=== PATIENT | male | born 1995 | race American Indian/Alaskan Native ===

== ENCOUNTER 2017-03-02 15:41 | Emergency (ER) | payer OTHER ==
[2017-03-02 16:02] VITALS: BP 148/83; PULSE 73; RESP 18; TEMP 97.8; O2SAT 98
--- NOTE | 2017-03-02 17:03 | ED PDOC ---
HPI: General Adult Time Seen by Provider: 03/02/17 17:00 Chief Complaint (Nursing): Abdominal Pain History Per: Patient Onset/Duration Of Symptoms: Days (1) Current Symptoms Are (Timing): Still Present Severity: Mild Pain Scale Rating Of: 0 Additional Complaint(s): [place] protrusion anal area yesterday after having BM. no pain or bleeding. no abd pain Past Medical History Vital Signs: Last Vital Signs Temp 97.8 F 03/02/17 15:59 Pulse 73 03/02/17 15:59 Resp 18 03/02/17 15:59 BP 148/83 03/02/17 15:59 Pulse Ox 98 03/02/17 15:59 - Medical History PMH: No Chronic Diseases - Family History Family History: States: Unknown Family Hx - Immunization History Hx Tetanus Toxoid Vaccination: No Hx Influenza Vaccination: No Hx Pneumococcal Vaccination: No - Home Medications Home Medications: Ambulatory Orders Medication Instructions Recorded Ciprofloxacin [Cipro] 500 mg PO BID #14 tab 07/06/16 Hydrocortisone 2.5% (Rectal) 1 applic [place] BID #1 tube 03/02/17 [Anusol-HC] - Allergies Allergies/Adverse Reactions: Allergies Allergy/AdvReac Type Severity Reaction Status Date / Time No Known Allergies Allergy Verified 07/06/16 13:43 Review of Systems Constitutional: Negative for: Fever Gastrointestinal: Negative for: Abdominal Pain, Melena, Hematochezia Physical Exam - Physical Exam Appears: Positive for: Non-toxic, No Acute Distress Skin: Positive for: Normal Color, Warm, DRY Rectal: Positive for: Hemorrhoids (Small ext hemorrhoid left side, non thrombosed. No blood) - ECG O2 Sat by Pulse Oximetry: 98 Disposition - Clinical Impression Clinical Impression: Hemorrhoid - Patient ED Disposition Is Patient to be Admitted: No Counseled Patient/Family Regarding: Diagnosis, Need For Followup, Rx Given - Disposition Referrals: Formerly [facility] [place] [Outside] Disposition: Routine/Home Disposition Time: 17:03 Condition: FAIR Prescriptions: Hydrocortisone 2.5% (Rectal) [Anusol-HC] 1 applic TN BID #1 tube Instructions: Hemorrhoids (ED) Forms: [employer] (Bulgarian)
== END 2017-03-02 17:30 | disposition home or self-care (01) ==
LOC: H.ER 15:41
DX: K64.9 Unspecified hemorrhoids (principal)

== ENCOUNTER 2018-02-02 13:08 | Emergency (ER) | payer MEDICAID ==
[2018-02-02 13:27] VITALS: BP 128/79; PULSE 60; RESP 18; TEMP 98.6; O2SAT 100
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
== END 2018-02-02 15:52 | disposition home or self-care (01) ==
LOC: H.ER 13:08 → SUPCPDRO 13:08 → H.ER 15:52
DX: H66.92 Otitis media, unspecified, left ear (principal)

== ENCOUNTER 2018-03-01 10:24 | Emergency (ER) | payer MEDICAID ==
[2018-03-01 10:33] VITALS: BP 138/77; PULSE 74; RESP 18; TEMP 98.5; O2SAT 99
--- NOTE | 2018-03-01 10:56 | ED PDOC ---
HPI: CCC, URI, Sore Throat Time Seen by Provider: 03/01/18 10:53 Chief Complaint (Nursing): ENT Problem History Per: Patient Onset/Duration Of Symptoms: Other (3 weeks) Current Symptoms Are (Timing): Still Present Location Of Pain: Ear(s) Associated Symptoms: denies: Fever, Nasal Congestion Ear Symptoms: Left: Ear Pain Severity: Mild Additional Complaint(s): Left ear pain x 3 weeks. Tx'ed woth antibiotics, improved but then recurred. Denies fever. No cough or discharge from ear. Past Medical History Vital Signs: Last Vital Signs Temp 98.5 F 03/01/18 10:32 Pulse 74 03/01/18 10:32 Resp 18 03/01/18 10:32 BP 138/77 03/01/18 10:32 Pulse Ox 99 03/01/18 10:32 - Medical History PMH: No Chronic Diseases - Family History Family History: States: Unknown Family Hx - Immunization History Hx Tetanus Toxoid Vaccination: No Hx Influenza Vaccination: No Hx Pneumococcal Vaccination: No - Home Medications Home Medications: Ambulatory Orders Medication Instructions Recorded Ciprofloxacin [Cipro] 500 mg PO BID #14 tab 07/06/16 Hydrocortisone 2.5% (Rectal) [address] BID #1 tube 03/02/17 [Anusol-HC] Amoxicillin 875 mg PO BID #14 tab 02/02/18 Naproxen 500 mg PO BID PRN #20 tab 02/02/18 Neomycin/Polymyxin/Hydrocortis 3 drop OT TID #1 bottle 03/01/18 [Cortisporin Otic Susp] - Allergies Allergies/Adverse Reactions: Allergies Allergy/AdvReac Type Severity Reaction Status Date / Time No Known Allergies Allergy Verified 07/06/16 13:43 Review of Systems Constitutional: Negative for: Fever ENT: Positive for: Ear Pain. Negative for: Throat Pain Respiratory: Negative for: Cough Physical Exam - Physical Exam Appears: Positive for: Non-toxic, No Acute Distress Skin: Positive for: Normal Color, Warm, DRY ENT: Positive for: Other (Left canal erythemetous. TM intact and nl) Neck: Positive for: Normal, Painless ROM - ECG O2 Sat by Pulse Oximetry: 99 Disposition - Clinical Impression Clinical Impression: Otitis externa - Patient ED Disposition Is Patient to be Admitted: No - Disposition Referrals: Emery Denny MD [Staff Provider] - Disposition: Routine/Home Disposition Time: 10:56 Condition: FAIR Prescriptions: Neomycin/Polymyxin/Hydrocortis [Cortisporin Otic Susp] 3 drop OT TID #1 bottle Instructions: Outer Ear Infection Forms: [employer] (Iranian), [facility] ED School/Work Excuse
== END 2018-03-01 11:15 | disposition home or self-care (01) ==
LOC: H.ER 10:24
DX: H60.92 Unspecified otitis externa, left ear (principal)

== ENCOUNTER 2018-04-08 14:01 | Inpatient (IN) | payer MEDICAID ==
[2018-04-08] MEDS ORDERED: Sodium Chloride 0.9% 1,000 ML IV STA (15:14)
[2018-04-08] MEDS ORDERED: Morphine 4 MG/ML VIAL IV STA (15:16)
--- NOTE | 2018-04-08 15:17 | ED PDOC ---
HPI: Abdomen Time Seen by Provider: 04/08/18 15:06 Chief Complaint (Nursing): Abdominal Pain Chief Complaint (Provider): Abdominal pain History Per: Patient History/Exam Limitations: no limitations Additional Complaint(s): Pt reports RLQ abdominal pain X 2 days, constant, no radiation. Denies fever, nausea, vomiting, constipation, diarrhea, urinary symptoms. Past Medical History Reviewed: Nursing Documentation, Vital Signs Vital Signs: Last Vital Signs Temp 98.2 F 04/08/18 14:16 Pulse 78 04/08/18 14:16 Resp 18 04/08/18 14:16 BP 120/66 04/08/18 14:16 Pulse Ox 99 04/08/18 14:16 - Medical History PMH: No Chronic Diseases - Surgical History Surgical History: No Surg Hx - Family History Family History: States: Unknown Family Hx - Social History Current smoker - smoking cessation education provided: Yes Alcohol: None - Immunization History Hx Tetanus Toxoid Vaccination: No Hx Influenza Vaccination: No Hx Pneumococcal Vaccination: No - Home Medications Home Medications: Ambulatory Orders Medication Instructions Recorded Ciprofloxacin [Cipro] 500 mg PO BID #14 tab 07/06/16 Hydrocortisone 2.5% (Rectal) 1 applic [place] BID #1 tube 03/02/17 [Anusol-HC] Amoxicillin 875 mg PO BID #14 tab 02/02/18 Naproxen 500 mg PO BID PRN #20 tab 02/02/18 Neomycin/Polymyxin/Hydrocortis 3 drop OT TID #1 bottle 03/01/18 [Cortisporin Otic Susp] - Allergies Allergies/Adverse Reactions: Allergies Allergy/AdvReac Type Severity Reaction Status Date / Time No Known Allergies Allergy Verified 07/06/16 13:43 Review of Systems Constitutional: Negative for: Fever, Chills Cardiovascular: Negative for: Chest Pain Respiratory: Negative for: Shortness of Breath Gastrointestinal: Positive for: Abdominal Pain. Negative for: Nausea, Vomiting, Diarrhea Genitourinary Male: Negative for: Dysuria, Hematuria Musculoskeletal: Negative for: Back Pain Skin: Negative for: Rash, Lesions Neurological: Negative for: Headache Physical Exam - Reviewed Nursing Documentation Reviewed: Yes Vital Signs Reviewed: Yes - Physical Exam Appears: Positive for: No Acute Distress Skin: Positive for: Normal Color, Warm, Dry Eye Exam: Positive for: Normal appearance, EOMI, PERRL Cardiovascular/Chest: Positive for: Regular Rate, Rhythm Respiratory: Positive for: Normal Breath Sounds Gastrointestinal/Abdominal: Positive for: Bowel Sounds, Soft, Tenderness (RLQ), Guarding. Negative for: Mass, Distended, Rebound Back: Positive for: Normal Inspection. Negative for: L CVA Tenderness, R CVA Tenderness Extremity: Positive for: Normal ROM Neurologic/Psych: Positive for: Oriented - Laboratory Results Result Diagrams: 04/08/18 15:40 04/08/18 15:40 - ECG O2 Sat by Pulse Oximetry: 99 Medical Decision Making Medical Decision Makin yo male with RLQ pain. - labs - CT abd/pelvis - IVF - Morphine Accession No. : [id number] Patient Name / ID : FAITH ARMSTRONG / [id number] Exam Date : 04/08/2018 16:59:41 ( Approved ) Study Comment : Sex / Age : M / 22Y Creator : Teresa Calvillo MD Dictator : Teresa Calvillo MD Director Mobile Media Solutions : Banking Analyst : Teresa Calvillo MD Approver2 : Report Date : 04/08/2018 17:29:35 My Comment : Date of service: 04/08/2018 CT abdomen and pelvis with IV contrast Indication: RLQ pain Technique: Contiguous axial images of the abdomen and pelvis. Coronal and Sagittal reformats generated and reviewed. Contrast: 95 mL Omnipaque [address] exam was performed using 1 or more of the following dose reduction techniques: Automated exposure control, adjustment of the MAA and/or kV according to patient size, and/or use of iterative reconstruction technique. Radiation dose: Total exam DLP = 730.65 MGy-cm. Comparison: None available Findings: No visible consolidation, pleural effusion, or pneumothorax. The liver, spleen, kidneys, pancreas, adrenal glands, and gallbladder appear unremarkable. The stomach is nondistended. The bowel loops appear within normal limits of caliber without evidence of intestinal obstruction. There is no definite free air. The appendix appears dilated measuring approximately 9 mm in diameter (axial image 118, coronal image 39) with mild adjacent inflammatory stranding. Correlate clinically for possibility of acute appendicitis. The urinary bladder appears unremarkable. Visualized osseous structures appear unremarkable. Impression: The appendix appears dilated measuring approximately 9 mm in diameter with mild adjacent inflammatory stranding. Correlate clinically for possibility of acute appendicitis. Correlate clinically including physical exam and white blood cell count. 17:55 18:00 Case discussed with vice president regulatory. Disposition - Clinical Impression Clinical Impression: Acute appendicitis - Patient ED Disposition Is Patient to be Admitted: Yes - Disposition Disposition Time: 17:50 Condition: STABLE Forms: [employer] (Polish) - Pt Status Changed To: Hospital Disposition Of: Inpatient - Admit Certification Admit to Inpatient:: After my assessment, the patient will require hospitalization for at least two midnights. This is because of the severity of symptoms shown, intensity of services needed, and/or the medical risk in this patient being treated as an outpatient. - POA Present On Arrival: None
[2018-04-08] MEDS ORDERED: Morphine 4 MG/ML VIAL ONE ×2 (15:44→15:47)
[2018-04-08 15:54] LABS: BASO % 0.3 % (0.0-2.0); EOS # 0.1 K/uL (0.0-0.7); EOS % 0.5 % (0.0-4.0); LYMPH # 1.3 K/uL (1.0-4.3); MEAN CELL VOLUME 89.7 fl (80.0-94.0); MEAN CORPUSCULAR HEMOGLOBIN 30.3 pg (27.0-31.0); MEAN CORPUSCULAR HGB CONC 33.8 g/dL (33.0-37.0); MEAN PLATELET VOLUME 8.6 fl (7.2-11.7); MONO # 0.8 K/uL (0.0-0.8); MONO % 6.4 % (0.0-10.0); NEUT % 82.8 % (50.0-75.0); RBC 4.97 Mil/uL (4.40-5.90); RED CELL DISTRIBUTION WIDTH 13.3 % (11.5-14.5); WHITE BLOOD COUNT 13.2 K/uL (4.8-10.8)
[2018-04-08 15:59] LABS: PROTHROMBIN TIME 10.8 Seconds (9.8-13.1)
[2018-04-08 16:02] LABS: PARTIAL THROMBOPLASTIN TIME 33.4 Seconds (25.6-37.1)
[2018-04-08 16:32] LABS: ALB/GLOB RATIO 1.5 (1.0-2.1); ALBUMIN 4.7 g/dL (3.5-5.0); ALT/SGPT 25 U/L (21-72); AST/SGOT 28 U/L (17-59); BLOOD UREA NITROGEN 14 mg/dl (9-20); CALCIUM 9.9 mg/dL (8.4-10.2); GFR NON-AFRICAN AMERICAN > 60
[2018-04-08] MEDS ORDERED: Iohexol 300 100 ML IJ ONE (16:51)
[2018-04-08] MEDS ORDERED: Sodium Chloride 0.9% 50 ML IV ONE (16:51)
--- NOTE | 2018-04-08 17:46 | CT ---
Date of service: 04/08/2018 CT abdomen and pelvis with IV contrast Indication: RLQ pain Technique: Contiguous axial images of the abdomen and pelvis. Coronal and Sagittal reformats generated and reviewed. Contrast: 95 mL Omnipaque [address] exam was performed using 1 or more of the following dose reduction techniques: Automated exposure control, adjustment of the MAA and/or kV according to patient size, and/or use of iterative reconstruction technique. Radiation dose: Total exam DLP = 730.65 MGy-cm. Comparison: None available Findings: No visible consolidation, pleural effusion, or pneumothorax. The liver, spleen, kidneys, pancreas, adrenal glands, and gallbladder appear unremarkable. The stomach is nondistended. The bowel loops appear within normal limits of caliber without evidence of intestinal obstruction. There is no definite free air. The appendix appears dilated measuring approximately 9 mm in diameter (axial image 118, coronal image 39) with mild adjacent inflammatory stranding. Correlate clinically for possibility of acute appendicitis. The urinary bladder appears unremarkable. Visualized osseous structures appear unremarkable. Impression: The appendix appears dilated measuring approximately 9 mm in diameter with mild adjacent inflammatory stranding. Correlate clinically for possibility of acute appendicitis. Correlate clinically including physical exam and white blood cell count. Findings discussed with Dr. Joyce on 04/08/18 at 5:43 p.m.
[2018-04-08] MEDS ORDERED: Piperacillin/Tazobact 4.5 GM in Sodium Chloride 0.9% 100 ML IVPB STA (17:49)
--- NOTE | 2018-04-08 18:58 | CP.PCM.CON ---
<Garland Patrick D - Last Filed: 04/08/18 18:54> History of Present Illness - History of Present Illness History of Present Illness: SURGERY NOTE FOR DR. RICE Reason: Appendicitis 22M presents with abdominal pain that started yesterday night. Patient states pain is in the right lower quadrant and that was where he originally felt the pain. He denies any nausea or vomiting, denies any fevers or chills. States he has not eating all day. He has never had this pain before. PMH: Denies PSH: Denies Social: admits to tobacco, denies alcohol use, and admits to marijuana use Allergies: NKDA Past Patient History - Infectious Disease Hx of Infectious Diseases: None - Past Social History Alcohol: None - PSYCHIATRIC Hx Substance Use: Yes - SURGICAL HISTORY Hx Surgeries: No - ANESTHESIA Hx Anesthesia: No Meds Allergies/Adverse Reactions: Allergies Allergy/AdvReac Type Severity Reaction Status Date / Time cherries Allergy Severe ITCHING Uncoded 04/09/18 08:20 Physical Exam - Constitutional Appears: Non-toxic, No Acute Distress - Eye Exam Eye Exam: EOMI, PERRL - ENT Exam ENT Exam: Mucous Membranes Moist - Respiratory Exam Respiratory Exam: Clear to Auscultation Bilateral, NORMAL BREATHING PATTERN - Cardiovascular Exam Cardiovascular Exam: REGULAR RHYTHM, +S1, +S2 - GI/Abdominal Exam GI & Abdominal Exam: Soft, Tenderness (moderate tenderness in RLQ). absent: Distended, Firm, Guarding, Rebound, Rigid - Extremities Exam Extremities exam: Negative for: pedal edema, tenderness - Neurological Exam Neurological exam: Alert, Oriented x3 - Skin Skin Exam: Dry, Intact, Normal Color, Warm Results - Vital Signs Recent Vital Signs: Last Vital Signs Temp 98.2 F 04/08/18 14:16 Pulse 78 04/08/18 14:16 Resp 18 04/08/18 14:16 BP 120/66 04/08/18 14:16 Pulse Ox 99 04/08/18 18:05 - Labs Result Diagrams: 04/08/18 15:40 04/08/18 15:40 Labs: Laboratory Results - last 24 hr 04/08/18 04/08/18 04/08/18 15:40 15:40 15:40 WBC 13.2 H D RBC 4.97 Hgb 15.0 Hct 44.6 MCV 89.7 MCH 30.3 MCHC 33.8 RDW 13.3 Plt Count 194 MPV 8.6 Neut % (Auto) 82.8 H Lymph % (Auto) 10.0 L [place] % (Auto) 6.4 Eos % (Auto) 0.5 Baso % (Auto) 0.3 Neut # (Auto) 11.0 H Lymph # (Auto) 1.3 [place] # (Auto) 0.8 Eos # (Auto) 0.1 Baso # (Auto) 0.0 PT 10.8 INR 1.0 APTT 33.4 Sodium 133 Potassium 3.5 L Chloride 101 Carbon Dioxide 26 Anion Gap 10 BUN 14 Creatinine 1.1 Est GFR ( Amer) > 60 Est GFR (Non-Af Amer) > 60 Random Glucose 99 Calcium 9.9 Total Bilirubin 0.5 AST 28 ALT 25 Alkaline Phosphatase 61 Total Protein 7.8 Albumin 4.7 Globulin 3.1 Albumin/Globulin Ratio 1.5 Assessment & Plan - Assessment and Plan (Free Text) Assessment: 22M with appendicitis Plan: - NPO after midnight - IVF - Pain control - Antibiotics - AM labs - Booked for OR tomorrow Discussed with Dr. Dwayne Patrick, PGY3 <Flynn Rice B - Last Filed: 04/15/18 08:13> Results - Vital Signs Recent Vital Signs: Last Vital Signs Temp 98.6 F 04/10/18 16:22 Pulse 70 04/10/18 16:22 Resp 16 04/10/18 16:22 BP 122/78 04/10/18 16:22 Pulse Ox 99 04/10/18 16:22 - Labs Result Diagrams: 04/10/18 07:20 04/10/18 07:20 Attending/Attestation - Attestation I have personally seen and examined this patient.: Yes I have fully participated in the care of the patient.: Yes I have reviewed all pertinent clinical information: Yes Notes (Text): Pt was seen and examined at bedside Agree with above note and assessment Pt with RLQ pain and nausea Abdomen : Soft, ND, tender in RLQ Labs and Radiology reviewed Ass: Acute Appendicitis with Leucocytosis Plan: OR for Lap Appendectomy possible Open Consent NPO, IVF IV antibiotics Plan d.w pt in detail Risk and benefit explained in detail.
[2018-04-08 19:20] LABS: URINE BILIRUBIN NEGATIVE (NEGATIVE); URINE BLOOD NEGATIVE (NEGATIVE); URINE CLARITY CLEAR (Clear); URINE COLOR YELLOW (YELLOW); URINE GLUCOSE (UA) NEG (NEGATIVE); URINE LEUKOCYTE ESTERASE NEG Leu/uL (Negative); URINE PROTEIN NEGATIVE (NEGATIVE); URINE UROBILINOGEN 0.2-1.0 mg/dL (0.2-1.0)
[2018-04-08] MEDS: Sodium Chloride 0.9% 1,000 ML IV SCH (19:51)
[2018-04-08] MEDS ORDERED: Piperacillin/Tazobact 3.375 GM in Sodium Chloride 0.9% 100 ML IVPB SCH (22:00)
[2018-04-09] MEDS: Piperacillin/Tazobact 3.375 GM in Sodium Chloride 0.9% 100 ML IVPB SCH ×3 (00:13→11:30)
[2018-04-09] MEDS: Sodium Chloride 0.9% 1,000 ML IV SCH (01:28)
[2018-04-09] MEDS ORDERED: Pneumococcal 23-Valent Vaccine IM ONE (06:22)
[2018-04-09 06:47] LABS: BASO % 0.3 % (0.0-2.0); EOS # 0.1 K/uL (0.0-0.7); EOS % 1.2 % (0.0-4.0); HEMOGLOBIN 13.7 g/dL (12.0-18.0); LYMPH # 2.2 K/uL (1.0-4.3); LYMPH % 25.1 % (20.0-40.0); MEAN CELL VOLUME 91.4 fl (80.0-94.0); MEAN CORPUSCULAR HEMOGLOBIN 30.8 pg (27.0-31.0); MEAN CORPUSCULAR HGB CONC 33.7 g/dL (33.0-37.0); MEAN PLATELET VOLUME 8.7 fl (7.2-11.7); MONO # 0.6 K/uL (0.0-0.8); MONO % 6.4 % (0.0-10.0); NEUT # 5.9 K/uL (1.8-7.0); NRBC % 0.3 % (0.0-0.0); RBC 4.43 Mil/uL (4.40-5.90); RED CELL DISTRIBUTION WIDTH 12.8 % (11.5-14.5); WHITE BLOOD COUNT 8.8 K/uL (4.8-10.8)
[2018-04-09 07:45] LABS: ALB/GLOB RATIO 1.4 (1.0-2.1); ALBUMIN 3.8 g/dL (3.5-5.0); ALT/SGPT 29 U/L (21-72); AST/SGOT 19 U/L (17-59); BLOOD UREA NITROGEN 9 mg/dl (9-20); CALCIUM 8.9 mg/dL (8.4-10.2); GFR NON-AFRICAN AMERICAN > 60
[2018-04-09] MEDS ORDERED: Lactated Ringer's 1,000 ML IV SCH (08:00)
[2018-04-09] MEDS ORDERED: Potassium Chloride 20 mEq 100 ML IVPB SCH (08:00)
[2018-04-09] MEDS: Potassium Chloride 20 mEq 100 ML IVPB SCH ×2 (09:44→12:49)
--- NOTE | 2018-04-09 11:56 | CP.PCM.HP ---
History of Present Illness - History of Present Illness History of Present Illness: 22 year old male with PMHx ADHD and eczema presents to [facility] ED yesterday with complaints of RLQ abdominal pain (7/10) that since yesterday. Denies any nausea, vomiting, diarrhea, constipation, fever, chills or dysuria. Denies any chest pain or dyspnea. In the ER, CT of A/P shows acute appendicitis. General surgery was consulted and patient placed on NPO and IV abx for OR this morning. Patient was seen and examined this morning with Dr. Dickson. Abdominal pain is controlled with pain medications. Denies any fever, chills or dizziness. ROS: All 12 systems reviewed and negative except as mentioned in HPI PMHx: ADHD, Eczema Pshx: denies Social: Smokes cigars (2 daily) since age 13, denies drinking ETOH or using drugs. Family hx: Paternal grandmother: DMII Medications: none Allergies: cherries Present on Admission - Present on Admission Any Indicators Present on Admission: No Review of Systems - Review of Systems All systems: reviewed and no additional remarkable complaints except Past Patient History - Infectious Disease Hx of Infectious Diseases: None - Past Medical History & Family History Past Medical History?: Yes - Past Social History Smoking Status: Light Smoker < 10 Cigarettes Daily - CARDIAC Hx Cardiac Disorders: No - PULMONARY Hx Respiratory Disorders: No - NEUROLOGICAL Hx Neurological Disorder: Yes Other/Comment: ADHD - HEENT Hx HEENT Problems: No - RENAL Hx Chronic Kidney Disease: No - ENDOCRINE/METABOLIC Hx Endocrine Disorders: No - HEMATOLOGICAL/ONCOLOGICAL Hx Blood Disorders: No Hx AIDS: No Hx Blood Transfusions: No Hx Human Immunodeficiency Virus (HIV): No - INTEGUMENTARY Hx Dermatological Problems: Yes Hx Eczema: Yes - MUSCULOSKELETAL/RHEUMATOLOGICAL Hx Musculoskeletal Disorders: No Hx Falls: No - GASTROINTESTINAL Hx Gastrointestinal Disorders: No - GENITOURINARY/GYNECOLOGICAL Hx Genitourinary Disorders: No - PSYCHIATRIC Hx Psychophysiologic Disorder: Yes Hx Bipolar Disorder: Yes Hx Substance Use: Yes (marijuana) Other/Comment: Bipolar disorder - SURGICAL HISTORY Hx Surgeries: No - ANESTHESIA Hx Anesthesia: No Meds Allergies/Adverse Reactions: Allergies Allergy/AdvReac Type Severity Reaction Status Date / Time cherries Allergy Severe ITCHING Uncoded 04/09/18 08:20 Physical Exam - Constitutional Appears: Non-toxic, No Acute Distress - Head Exam Head Exam: NORMAL INSPECTION - Eye Exam Eye Exam: Normal appearance - ENT Exam ENT Exam: Mucous Membranes Moist - Neck Exam Neck exam: Positive for: Normal Inspection - Respiratory Exam Respiratory Exam: Clear to Auscultation Bilateral, NORMAL BREATHING PATTERN. absent: Rhonchi, Wheezes - Cardiovascular Exam Cardiovascular Exam: REGULAR RHYTHM, +S1, +S2 - GI/Abdominal Exam GI & Abdominal Exam: Normal Bowel Sounds, Soft Additional comments: RLQ tenderness. No rebound or guarding. - Extremities Exam Extremities exam: Positive for: normal inspection. Negative for: calf tenderness, pedal edema - Neurological Exam Neurological exam: Alert, Oriented x3 - Psychiatric Exam Psychiatric exam: Normal Affect, Normal Mood - Skin Skin Exam: Normal Color Results - Vital Signs Recent Vital Signs: Last Vital Signs Temp 98.2 F 04/09/18 09:00 Pulse 81 04/09/18 09:00 Resp 20 04/09/18 09:00 BP 138/67 04/09/18 09:00 Pulse Ox 99 04/09/18 09:00 - Labs Result Diagrams: 04/09/18 05:50 04/09/18 05:50 Labs: Laboratory Results - last 24 hr 04/08/18 04/08/18 04/08/18 15:40 15:40 15:40 WBC 13.2 H D RBC 4.97 Hgb 15.0 Hct 44.6 MCV 89.7 MCH 30.3 MCHC 33.8 RDW 13.3 Plt Count 194 MPV 8.6 Neut % (Auto) 82.8 H Lymph % (Auto) 10.0 L Sharp % (Auto) 6.4 Eos % (Auto) 0.5 Baso % (Auto) 0.3 Neut # (Auto) 11.0 H Lymph # (Auto) 1.3 Sharp # (Auto) 0.8 Eos # (Auto) 0.1 Baso # (Auto) 0.0 PT 10.8 INR 1.0 APTT 33.4 Sodium 133 Potassium 3.5 L Chloride 101 Carbon Dioxide 26 Anion Gap 10 BUN 14 Creatinine 1.1 Est GFR ( Amer) > 60 Est GFR (Non-Af Amer) > 60 Random Glucose 99 Calcium 9.9 Total Bilirubin 0.5 AST 28 ALT 25 Alkaline Phosphatase 61 Total Protein 7.8 Albumin 4.7 Globulin 3.1 Albumin/Globulin Ratio 1.5 Urine Color Urine Clarity Urine pH Ur Specific [place] Urine Protein Urine Glucose (UA) Urine Ketones Urine Blood Urine Nitrate Urine Bilirubin Urine Urobilinogen Ur Leukocyte Esterase Urine RBC (Auto) Urine Microscopic WBC 04/08/18 04/09/18 04/09/18 19:00 05:50 05:50 WBC 8.8 RBC 4.43 Hgb 13.7 Hct 40.5 MCV 91.4 MCH 30.8 MCHC 33.7 RDW 12.8 Plt Count 191 MPV 8.7 Neut % (Auto) 67.0 Lymph % (Auto) 25.1 Sharp % (Auto) 6.4 Eos % (Auto) 1.2 Baso % (Auto) 0.3 Neut # (Auto) 5.9 Lymph # (Auto) 2.2 Sharp # (Auto) 0.6 Eos # (Auto) 0.1 Baso # (Auto) 0.0 PT INR APTT Sodium 140 Potassium 2.9 L Chloride 106 Carbon Dioxide 27 Anion Gap 10 BUN 9 Creatinine 1.0 Est GFR ( Amer) > 60 Est GFR (Non-Af Amer) > 60 Random Glucose 93 Calcium 8.9 Total Bilirubin 1.1 AST 19 ALT 29 Alkaline Phosphatase 48 Total Protein 6.6 Albumin 3.8 Globulin 2.7 Albumin/Globulin Ratio 1.4 Urine Color Yellow Urine Clarity Clear Urine pH 6.0 Ur Specific [place] 1.049 H Urine Protein Negative Urine Glucose (UA) Neg Urine Ketones Negative Urine Blood Negative Urine Nitrate Negative Urine Bilirubin Negative Urine Urobilinogen 0.2-1.0 Ur Leukocyte Esterase Neg Urine RBC (Auto) 1 Urine Microscopic WBC < 1 Assessment & Plan - Assessment and Plan (Free Text) Assessment: 22 year old male admitted for acute appendicitis. Plan: CT A/P: Impression: The appendix appears dilated measuring approximately 9 mm in diameter with mild adjacent inflammatory stranding. Correlate clinically for possibility of acute appendicitis. -WBC 13.2 yesterday, 8.8 this morning -Vitals stable, afebrile -Surgery consult appreciated. -OR this afternoon -Patient is hemodynamically stable for surgery -Replete potassium for hypokalemia -c/w pain management, IV Fluids and iv ABX -Rest of the plan as ordered Patient seen, examined and plan discussed with Dr. Randolph Deluca, pgy-2
[2018-04-09] MEDS ORDERED: Propofol 10 mg/ml Inj (20 ML) ONE (12:53)
[2018-04-09] MEDS ORDERED: Rocuronium 10 mg/ml (5 ml) ONE (12:53)
[2018-04-09] MEDS ORDERED: Midazolam 2 MG/2 ML VIAL ONE (12:53)
[2018-04-09] MEDS ORDERED: Succinylcholine Chloride 20 mg/ml Syr (5 ml) IV ONE (12:55)
[2018-04-09] MEDS ORDERED: Bupivacaine 0.5% Inj(30mL) ONE (12:57)
[2018-04-09] MEDS ORDERED: ceFAZolin IV 1 gm in Dextrose 0 GM/0 ML BAG IVPB ONE (12:57)
[2018-04-09] MEDS ORDERED: Lidocaine 1% Inj (20ml) ONE (12:58)
[2018-04-09 13:15] LABS: BLOOD UREA NITROGEN 7 mg/dl (9-20); CALCIUM 8.9 mg/dL (8.4-10.2); GFR NON-AFRICAN AMERICAN > 60
[2018-04-09] MEDS ORDERED: Lactated Ringer's 1,000 ML IV ONE ×2 (13:42→13:50)
[2018-04-09] MEDS ORDERED: Neostigmine 1:1000 (1 mg/ml) Inj ONE (14:29)
--- NOTE | 2018-04-09 14:44 | PCM.SURG1 ---
Surgeon's Initial Post Op Note - Surgeon's Notes Surgeon: Taryn Rice MD Miter Operator: TATO Lowe Type of Anesthesia: General Endo Pre-Operative Diagnosis: Acute Appendicitis Operative Findings: Acute suppurative Appendicitis. Pelvic Abscess Post-Operative Diagnosis: Acute suppurative Appendicitis. Pelvic Abscess Operation Performed: Lap Appendectomy. Lap Drainage of Pelvic abscess Specimen/Specimens Removed: Appendix Estimated Blood Loss: EBL {In ML}: 10 Blood Products Given: N/A Drains Used: No Drains Post-Op Condition: Good Date of Surgery/Procedure: 04/09/18 Time of Surgery/Procedure: 14:44
[2018-04-09] MEDS ORDERED: Morphine 4 MG/ML VIAL IVP PRN (14:46)
[2018-04-09] MEDS ORDERED: HYDROmorphone 0.5 mg/0.5 ml ISec IVP PRN (15:04)
[2018-04-09] MEDS: Piperacillin/Tazobact 4.5 GM in Sodium Chloride 0.9% 100 ML IVPB SCH (17:05)
[2018-04-10] MEDS: Piperacillin/Tazobact 4.5 GM in Sodium Chloride 0.9% 100 ML IVPB SCH ×3 (01:10→16:12)
[2018-04-10 07:56] LABS: HEMOGLOBIN 13.6 g/dL (12.0-18.0); MEAN CELL VOLUME 89.3 fl (80.0-94.0); MEAN CORPUSCULAR HEMOGLOBIN 30.8 pg (27.0-31.0); MEAN CORPUSCULAR HGB CONC 34.5 g/dL (33.0-37.0); RBC 4.43 Mil/uL (4.40-5.90); RED CELL DISTRIBUTION WIDTH 12.9 % (11.5-14.5)
[2018-04-10 08:12] LABS: BLOOD UREA NITROGEN 4 mg/dl (9-20); CALCIUM 9.3 mg/dL (8.4-10.2); GFR NON-AFRICAN AMERICAN > 60
[2018-04-10 09:00] VITALS: RESP 16
[2018-04-10] MEDS ORDERED: Oxycodone/Acetaminophen 5/325 mg Tab PO PRN ×2 (12:58)
[2018-04-10] MEDS ORDERED: Potassium Chloride 20 mEq ER Tab PO ONE (13:15)
--- NOTE | 2018-04-10 13:29 | CP.PCM.PN ---
<Pastor Salazar - Last Filed: 04/10/18 13:27> Subjective - Date & Time of Evaluation Date of Evaluation: 04/10/18 Time of Evaluation: 13:27 - Subjective Subjective: Patient seen and examined. No acute events over night. Tolerating full liquid diet. Passing flatus. Objective - Vital Signs/Intake and Output Vital Signs (last 24 hours): Temp Pulse Resp BP Pulse Ox 98.8 F 66 16 118/77 100 04/10/18 08:59 04/10/18 08:59 04/10/18 08:59 04/10/18 08:59 04/10/18 08:59 Intake and Output: 04/10/18 04/10/18 06:59 18:59 Intake Total 560 Balance 560 - Medications Medications: Current Medications Piperacillin Sod/Tazobactam (Sod 4.5 gm/ Sodium Chloride) 100 mls @ 100 mls/hr IVPB Q8 JOSIAS; Protocol Last Admin: 04/10/18 09:08 Dose: 100 mls/hr Oxycodone/Acetaminophen (Percocet 5/325 Mg Tab) 1 tab PO Q6 PRN PRN Reason: Pain, moderate (4-7) Stop: 04/13/18 12:59 Oxycodone/Acetaminophen (Percocet 5/325 Mg Tab) 2 tab PO Q6 PRN PRN Reason: Pain, severe (8-10) Stop: 04/13/18 12:59 - Labs Labs: 04/10/18 07:20 04/10/18 07:20 PT 10.8 Seconds (9.8-13.1) 04/08/18 15:40 INR 1.0 04/08/18 15:40 APTT 33.4 Seconds (25.6-37.1) 04/08/18 15:40 - Constitutional Appears: No Acute Distress - Head Exam Head Exam: NORMOCEPHALIC - Eye Exam Eye Exam: EOMI, Normal appearance - ENT Exam ENT Exam: Mucous Membranes Moist - Respiratory Exam Respiratory Exam: NORMAL BREATHING PATTERN - Cardiovascular Exam Cardiovascular Exam: +S1, +S2 - GI/Abdominal Exam GI & Abdominal Exam: Soft, Tenderness Additional comments: incisional site tenderness - Neurological Exam Neurological Exam: Alert, Awake, Oriented x3 - Psychiatric Exam Psychiatric exam: Normal Mood - Skin Skin Exam: Dry, Intact, Warm Assessment and Plan - Assessment and Plan (Free Text) Assessment: 22M s/p laparoscopic appendectomy POD1 Plan: -Clear for discharge from surgical standpoint -Resume regular diet -D/C on PO levaquin -Avoid heavy lifting -Analgesic prn -F/u in office with Dr. Rice in 1 week D/w Dr. Dwayne Suresh PGY3 <Flynn Rice - Last Filed: 04/15/18 08:17> Objective - Vital Signs/Intake and Output Vital Signs (last 24 hours): Temp Pulse Resp BP Pulse Ox 98.6 F 70 16 122/78 99 04/10/18 16:22 04/10/18 16:22 04/10/18 16:22 04/10/18 16:22 04/10/18 16:22 - Labs Labs: 04/10/18 07:20 04/10/18 07:20 PT 10.8 Seconds (9.8-13.1) 04/08/18 15:40 INR 1.0 04/08/18 15:40 APTT 33.4 Seconds (25.6-37.1) 04/08/18 15:40 Attending/Attestation - Attestation I have fully participated in the care of the patient.: Yes I have reviewed all pertinent clinical information, including history, physical exam and plan: Yes Notes (Text): Pt is improving clinically Can be DC home with Po antibiotics Local wound care f.u as out pt Plan d.w pt in detail
[2018-04-10 16:22] VITALS: BP 122/78; PULSE 70; TEMP 98.6; O2SAT 99
--- NOTE | 2018-04-13 11:13 | OP ---
PROCEDURE DATE: 04/09/2018 PREOPERATIVE DIAGNOSES: Acute appendicitis and leukocytosis. POSTOPERATIVE DIAGNOSES: 1. Acute suppurative appendicitis. 2. Pelvic abscess. PROCEDURES DONE: 1. Laparoscopic appendectomy. 2. Laparoscopic drainage of pelvic abscess. SURGEON: Flynn Rice MD. MAT CLEANING MACHINE OPERATOR: CYNTHIA Lowe. TYPE OF ANESTHESIA: General endotracheal tube anesthesia. ESTIMATED BLOOD LOSS: Around 10 mL. DRAIN: None. PATHOLOGY: Appendix was sent for the pathology. COMPLICATIONS: None. INTRAOPERATIVE FINDINGS: The patient had acute suppurative appendicitis with pelvic abscess. DESCRIPTION OF PROCEDURE: On intraoperative steps, this 22-year-old male was diagnosed with acute appendicitis with leukocytosis and the patient was consented for laparoscopic appendectomy, possible open. Brought to the OR, placed supine on the operating table. After induction of anesthesia, the abdomen was prepped and draped in the usual sterile fashion. The supraumbilical incision was made using the open technique, Jonathan port was placed, pneumo was created. Another two 5-mm and 12-mm ports were placed in left lower quadrant. The grasper and dissector were introduced. The appendix was identified. The appendix appeared to be inflamed and there was a pelvic abscess. First, the mesoappendix was resected, base of the appendix was resected with SILVIO and appendix was taken in EndoCatch bag. Proper hemostasis was achieved. Now, the pelvic abscess was drained. Suction irrigation of the pelvic abscess as well as the periappendicular area was done and all the fluid and pus was suctioned out. After proper hemostasis, all the ports were taken out under vision. Pneumo was deflated. Umbilical port site was closed in two layers, the fascia with 0 Vicryl interrupted suture, skin with 4-0 Monocryl and dry sterile dressing was applied. The patient tolerated the procedure well. Count of instrument and gauze was correct. There was no apparent complication. The patient was extubated in OR, sent to the postanesthesia care unit in stable condition. Flynn Rice MD
== END 2018-04-10 18:17 | disposition home or self-care (01) | DRG 883 ==
LOC: H.ER 14:01 → H.ERHOLD 18:03 → H.PEDS 20:39
PROVIDERS: ADMIT Family Medicine; ATTEND Family Medicine
PROC: 0W9J4ZZ Drainage of Pelvic Cavity, Percutaneous Endoscopic Approach (ICD-10-PCS; 2018-04-09)
PROC: 0DTJ4ZZ Resection of Appendix, Percutaneous Endoscopic Approach (ICD-10-PCS; principal; 2018-04-09 13:00)
DX: K35.33 Acute appendicitis with perforation, localized peritonitis, and gangrene, with abscess (principal); E87.6 Hypokalemia; F17.290 Nicotine dependence, other tobacco product, uncomplicated; F90.9 Attention-deficit hyperactivity disorder, unspecified type; Z91.018 Allergy to other foods

== ENCOUNTER 2018-05-25 21:28 | Emergency (ER) | payer MEDICAID ==
[2018-05-25 21:45] VITALS: BP 122/73; PULSE 61; RESP 16; TEMP 98; O2SAT 98
--- NOTE | 2018-05-25 22:32 | ED PDOC ---
Upper Extremity Pain/Injury Time Seen by Provider: 05/25/18 21:47 Chief Complaint (Nursing): Finger,Hand,&Wrist History Per: Patient Additional Complaint(s): Pt. states yesterday he punched a mailbox and injured the R hand. Pt states he's since had pain and swelling to the hand. Denies numbness, tingling, other injury. Past Medical History Reviewed: Historical Data, Nursing Documentation, Vital Signs Vital Signs: Last Vital Signs Temp 98.0 F 05/25/18 21:44 Pulse 61 05/25/18 21:44 Resp 16 05/25/18 21:44 BP 122/73 05/25/18 21:44 Pulse Ox 98 05/25/18 21:44 - Medical History PMH: Bipolar Disorder Denies: HIV, Chronic Kidney Disease - Family History Family History: States: Unknown Family Hx - Immunization History Hx Tetanus Toxoid Vaccination: No Hx Influenza Vaccination: No Hx Pneumococcal Vaccination: No - Home Medications Home Medications: Ambulatory Orders Medication Instructions Recorded Naproxen [Naprosyn] 500 mg PO BID PRN #10 tab 05/25/18 - Allergies Allergies/Adverse Reactions: Allergies Allergy/AdvReac Type Severity Reaction Status Date / Time cherries Allergy Severe ITCHING Uncoded 05/25/18 21:44 Review of Systems ROS Statement: Except As Marked, All Systems Reviewed And Found Negative Musculoskeletal: Positive for: Hand Pain Physical Exam - Physical Exam Appears: Positive for: Well, Non-toxic, No Acute Distress Skin: Positive for: Normal Color, Warm. Negative for: Rash Eye Exam: Positive for: Normal appearance Pulses-Radial (L): 2+ Pulses-Radial (R): 2+ Extremity: Positive for: Other (mild swelling and tenderness on dorsum of R hand without deformity or break in skin integirty) - ECG O2 Sat by Pulse Oximetry: 98 - Radiology X-Ray: Interpreted by Me (R hand/wrist x-ray) X-Ray Interpretation: No Acute Disease - Progress ED Course And Treament: Hand/wrist immobilized in volar splint applied by PA. Disposition - Clinical Impression Clinical Impression: Hand injury - Patient ED Disposition Is Patient to be Admitted: No - Disposition Referrals: Jose Martínez III, MD [Staff Provider] - Kevin Tobias MD [Staff Provider] - Disposition: Routine/Home Disposition Time: 22:34 Condition: STABLE Additional Instructions: FOLLOW UP WITH YOUR ORTHOPEDIST FOR FURTHER EVALUATION RETURN TO ED IMMEDIATELY IF SYMPTOMS WORSEN PATTI CUEVAS, thank you for letting us take care of you today. Your provider was Jae Arzate MD and you were treated for RT WRIST PAIN. The emergency medical care you received today was directed at your acute symptoms. If you were prescribed any medication, please fill it and take as directed. It may take several days for your symptoms to resolve. Return to the Emergency Department if your symptoms worsen, do not improve, or if you have any other problems. Please contact your doctor or call one of the physicians/clinics you have been referred to that are listed on the Patient Visit Information form that is included in your discharge packet. Bring any paperwork you were given at discharge with you along with any medications you are taking to your follow up visit. Our treatment cannot replace ongoing medical care by a primary care provider outside of the emergency department. Thank you for allowing the [facility] team to be part of your care today. If you had an X-Ray or CT scan: A Radiologist will review the ED reading if any change in treatment is needed we will contact you. If you had a blood, urine, or wound culture: It will take several days for the results, if any change in treatment is needed we will contact you. If you had an STI test: It will take 48 hours for the results. Please call after 1 week if you have not heard back. Prescriptions: Naproxen [Naprosyn] 500 mg PO BID PRN #10 tab PRN Reason: Pain Instructions: Hand Pain (DC) Forms: [employer] (Albanian), [facility] ED School/Work Excuse Print Language: KITTITIAN
--- NOTE | 2018-05-26 09:57 | RAD ---
PROCEDURE: Right Hand Radiographs. HISTORY: trauma COMPARISON: None. FINDINGS: BONES: No acute fracture appreciated. The deformity of the distal 5th metacarpal is compatible with old healed prior trauma here JOINTS: Normal. No osteoarthritic changes. SOFT TISSUES: Normal. OTHER FINDINGS: None. IMPRESSION: No acute fracture. Fifth metacarpal deformity consistent with remote/old healed trauma here.
--- NOTE | 2018-05-26 09:58 | RAD ---
Date of service: 05/25/2018 PROCEDURE: Right Wrist Radiographs. HISTORY: trauma COMPARISON: None. FINDINGS: BONES: No acute fracture seen. The deformity of the distal 5th metacarpal is more conspicuous on patient's same-day right hand x-ray. This is compatible with old healed remote trauma here. JOINTS: Normal. No dislocation. SOFT TISSUES: Normal. OTHER FINDINGS: None. IMPRESSION: No acute fracture. Other findings as above.
== END 2018-05-25 22:40 | disposition home or self-care (01) ==
LOC: H.ER 21:28
DX: S69.91XA Unspecified injury of right wrist, hand and finger(s), initial encounter (principal); W22.09XA Striking against other stationary object, initial encounter; Z86.59 Personal history of other mental and behavioral disorders

== ENCOUNTER 2018-05-30 08:14 | Emergency (ER) | payer MEDICAID ==
[2018-05-30 08:19] VITALS: RESP 18; TEMP 98.2; O2SAT 99
--- NOTE | 2018-05-30 09:41 | ED PDOC ---
Upper Extremity Pain/Injury Time Seen by Provider: 05/30/18 08:43 Chief Complaint (Nursing): Finger,Hand,&Wrist Chief Complaint (Provider): Finger,Hand,&Wrist History Per: Patient History/Exam Limitations: no limitations Onset/Duration Of Symptoms: Hrs Current Symptoms Are (Timing): Still Present Additional Complaint(s): Patient is a 22 y/o male with a PMHx of bipolar disorder who presents to the ED for evaluation of right wrist pain, onset this morning at 4:00. Patient was seen in the ED on 05/25/2018 after punching a mailbox and injuring his hand. Patient's right hand was placed in a metacarpal splint which he removed at work this morning. When attempting to lift a heavy package he began experiencing pain in his wrist. Patient reapplied the splint himself and decided to come to the ED. Patient is requesting a note for work so that he can rest. Patient is still able to move his fingers. PCP: None Provided Past Medical History Reviewed: Historical Data, Nursing Documentation, Vital Signs Vital Signs: Last Vital Signs Temp 98.2 F 05/30/18 08:17 Pulse 67 05/30/18 08:17 Resp 18 05/30/18 08:17 BP 137/64 05/30/18 08:17 Pulse Ox 99 05/30/18 08:17 - Medical History PMH: Bipolar Disorder Denies: HIV, Chronic Kidney Disease - Surgical History Surgical History: No Surg Hx - Family History Family History: States: Unknown Family Hx - Immunization History Hx Tetanus Toxoid Vaccination: No Hx Influenza Vaccination: No Hx Pneumococcal Vaccination: No - Home Medications Home Medications: Ambulatory Orders Medication Instructions Recorded Naproxen [Naprosyn] 500 mg PO BID PRN #10 tab 05/25/18 - Allergies Allergies/Adverse Reactions: Allergies Allergy/AdvReac Type Severity Reaction Status Date / Time cherries Allergy Severe ITCHING Uncoded 05/25/18 21:44 Review of Systems ROS Statement: Except As Marked, All Systems Reviewed And Found Negative Musculoskeletal: Positive for: Hand Pain (Right) Physical Exam - Reviewed Nursing Documentation Reviewed: Yes Vital Signs Reviewed: Yes - Physical Exam Head Exam: Positive for: ATRAUMATIC, NORMAL INSPECTION, NORMOCEPHALIC Skin: Positive for: Normal Color, Warm, Dry Eye Exam: Positive for: EOMI, Normal appearance, PERRL Neck: Positive for: Normal, Painless ROM Extremity: Positive for: Normal ROM (with metacarpal splint on right hand; able to flex and move digits), Other (Normal sensation to touch). Negative for: Pedal Edema, Deformity Neurologic/Psych: Positive for: Alert, Oriented - ECG O2 Sat by Pulse Oximetry: 99 (RA) Pulse Ox Interpretation: Normal Medical Decision Making Medical Decision Making: Time: 914 Impression: Right Wrist Injury Plan: Patient denied xray because he plans on following up with doctors referred to from last visit. ---- Scribe Attestation: Documented by Shivam Ponce, acting as a scribe for Nicky Valdez MD. Provider Scribe Attestation: All medical record entries made by the Scribe were at my direction and personally dictated by me. I have reviewed the chart and agree that the record accurately reflects my personal performance of the history, physical exam, medical decision making, and the department course for this patient. I have also personally directed, reviewed, and agree with the discharge instructions and disposition. Disposition - Clinical Impression Clinical Impression: Hand injury - Patient ED Disposition Is Patient to be Admitted: No Doctor Will See Patient In The: Office Counseled Patient/Family Regarding: Diagnosis, Need For Followup - Disposition Disposition: Routine/Home Disposition Time: 09:45 Condition: STABLE Instructions: Hand Pain Forms: [employer] (Cymro), [facility] ED School/Work Excuse - POA Present On Arrival: Falls Or Trauma
[2018-05-30 10:40] VITALS: BP 130/70; PULSE 70
== END 2018-05-30 10:30 | disposition home or self-care (01) ==
LOC: H.ER 08:14
DX: S69.91XD Unspecified injury of right wrist, hand and finger(s), subsequent encounter (principal); X50.9XXD Other and unspecified overexertion or strenuous movements or postures, subsequent encounter; Z86.59 Personal history of other mental and behavioral disorders

== ENCOUNTER 2018-06-06 23:42 | Emergency (ER) | payer MEDICAID ==
[2018-06-07 00:14] VITALS: BP 129/74; PULSE 98; RESP 16; TEMP 98.6; O2SAT 99
--- NOTE | 2018-06-07 00:48 | ED PDOC ---
Upper Extremity Pain/Injury Time Seen by Provider: 06/07/18 00:11 Chief Complaint (Nursing): Finger,Hand,&Wrist Additional Complaint(s): Patients states that last month he was seen in this ED for right hand/right wrist injury. Patient had x-rays done at that time which were normal and he was placed on a splint. Patient states that after several days he went to work despite having some pain and the pain worsened. He returned to the ED on the as he needed a work note. Patient is unable to afford an appointment with orthopedist and his job requires him to see a specialist in order to get cleared to go back to work. Patient reports that since then pain has resolved and he has a scheduled appointment with orthopedist on Thursday but he needs a doctors note. 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 He denies numbness, tingling, or new trauma. Past Medical History Reviewed: Historical Data, Nursing Documentation, Vital Signs Vital Signs: Last Vital Signs Temp 98.6 F 06/07/18 00:12 Pulse 98 H 06/07/18 00:12 Resp 16 06/07/18 00:12 BP 129/74 06/07/18 00:12 Pulse Ox 99 06/07/18 00:12 - Medical History PMH: Bipolar Disorder Denies: HIV, Chronic Kidney Disease - Family History Family History: States: Unknown Family Hx - Immunization History Hx Tetanus Toxoid Vaccination: No Hx Influenza Vaccination: No Hx Pneumococcal Vaccination: No - Home Medications Home Medications: Ambulatory Orders Medication Instructions Recorded Naproxen [Naprosyn] 500 mg PO BID PRN #10 tab 05/25/18 - Allergies Allergies/Adverse Reactions: Allergies Allergy/AdvReac Type Severity Reaction Status Date / Time cherries Allergy Severe ITCHING Uncoded 05/25/18 21:44 Review of Systems ROS Statement: Except As Marked, All Systems Reviewed And Found Negative Physical Exam - Reviewed Nursing Documentation Reviewed: Yes Vital Signs Reviewed: Yes - Physical Exam Appears: Positive for: Well, Non-toxic, No Acute Distress Head Exam: Positive for: ATRAUMATIC, NORMAL INSPECTION, NORMOCEPHALIC Skin: Positive for: Normal Color, Warm, DRY Eye Exam: Positive for: EOMI, Normal appearance, PERRL Extremity: Positive for: Normal ROM (able to move all fingers actively), Capillary Refill (<2 seconds all fingers), Other (right hand in volar wrist splint; distale sensation equal and intact) - ECG O2 Sat by Pulse Oximetry: 99 (RA) Pulse Ox Interpretation: Normal Medical Decision Making Medical Decision Making: Time: 00:11 Impression: right hand injury Initial Plan: Scribe Attestation: Documented by Albert Pacheco, acting as a scribe for Chidi Torres PA-C Provider Scribe Attestation: All medical record entries made by the Scribe were at my direction and personally dictated by me. I have reviewed the chart and agree that the record accurately reflects my personal performance of the history, physical exam, medical decision making, and the department course for this patient. I have also personally directed, reviewed, and agree with the discharge instructions and disposition. Disposition - Clinical Impression Clinical Impression: Hand injury - Patient ED Disposition Is Patient to be Admitted: No - Disposition Disposition: Routine/Home Disposition Time: 00:32 Condition: STABLE Additional Instructions: FOLLOW UP WITH THE ORTHOPEDIST ON THURSDAY YOU HAD PREVIOUSLY SCHEDULED WITHOUT FAIL RETURN TO ED IMMEDIATELY FOR ANY CONCERNS OR QUESTIONS PATTI CUEVAS, thank you for letting us take care of you today. Your provider was Jae Arzate MD and you were treated for WOUND CHECK. The emergency medical care you received today was directed at your acute symptoms. If you were prescribed any medication, please fill it and take as directed. It may take several days for your symptoms to resolve. Return to the Emergency Department if your symptoms worsen, do not improve, or if you have any other problems. Please contact your doctor or call one of the physicians/clinics you have been referred to that are listed on the Patient Visit Information form that is included in your discharge packet. Bring any paperwork you were given at discharge with you along with any medications you are taking to your follow up visit. Our treatment cannot replace ongoing medical care by a primary care provider outside of the emergency department. Thank you for allowing the [facility] team to be part of your care today. If you had an X-Ray or CT scan: A Radiologist will review the ED reading if any change in treatment is needed we will contact you. If you had a blood, urine, or wound culture: It will take several days for the results, if any change in treatment is needed we will contact you. If you had an STI test: It will take 48 hours for the results. Please call after 1 week if you have not heard back. Instructions: Hand Pain (DC) Forms: [employer] ([place]), [facility] ED School/Work Excuse
== END 2018-06-07 01:00 | disposition home or self-care (01) ==
LOC: H.ER 23:42
DX: F31.9 Bipolar disorder, unspecified (principal)